=== PATIENT | female | born 2000 | race Caucasian/White ===

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

== ENCOUNTER 2019-02-26 21:29 | Emergency (ER) | payer MEDICAID, SELFPAY ==
[2019-02-26 21:29] VITALS: BP 117/58; PULSE 82; RESP 16; TEMP 36.4; O2SAT 99; BMI 30.5
--- NOTE | 2019-02-26 21:40 | RAD_ITS ---
STUDY: X-RAY - RIGHT KNEE REASON FOR EXAM: Female, 18 years old. Right knee pain after fall. Patient says she has a tibial plateau fracture TECHNIQUE: 4 by view(s) of the knee. COMPARISON: None. FINDINGS: Normal visualized distal femur. Normal visualized proximal tibia and fibula. Normal proximal tibiofibular articulation. There is no acute fracture, dislocation or destructive osseous pathology. Normal medial femorotibial compartment. Normal lateral femorotibial compartment. Normal patellofemoral articulation. There is no demonstrated joint effusion. The soft tissue structures are unremarkable. RAD/Knee 4 or More Views IMPRESSION: Normal x-ray examination of the knee. Electronically Signed: Bill Radford DO at 22:04 EDT Tel [phone], Service support ,
--- NOTE | 2019-02-26 22:48 | ED.VISSUMM ---
- ER Visit Summary Date of Service: 02/26/19 Chief Complaint: Right knee pain History of Present Illness: The patient is a 18 F with right knee pain. She fell coming out of a restaurant tonight. She landed directly on her right knee. She is currently on crutches because she had a previous lateral tibial plateau fracture. He states the pain is worse with movement. She took nothing for this at home. She has a follow-up with orthopedics next week about coming off of the crutches. Physical Examination: Vital signs reviewed. Right knee exam reveals tenderness in the anterior and lateral portion of the knee. Pain is worse with bending. She has 2+ DP pulses. There is her knee exam is unremarkable without ecchymosis. Test Results: X-rays interpreted by myself and radiology are negative for fracture Emergency Department Course and Treatment: The patient's lateral tibial plateau fracture was not found on x-ray or CT. It was found on an MRI. I do not see any large fracture tonight. The patient requested nonnarcotic medications. I will give her naproxen. I told her to stay nonweightbearing on crutches. She has a follow-up on Friday of this coming week and she will keep that appointment. Treatment Plan: [] Disposition: Discharge Impression: Right knee pain, history of tibial plateau fracture This note was generated with [employer] dictation software. It may contain incorrect words, spelling, and punctuation that were not noted in review of the chart prior to signing ED Disposition - Plan for ED Patient: Referrals: Milan Gustafson MD [Primary Care Provider] -
[2019-02-26 22:49] VITALS: BP 118/60; PULSE 72; RESP 18; O2SAT 98
--- NOTE | 2019-02-26 22:50 | ED.DEP ---
ED Disposition - Plan for ED Patient: Disposition: Home or Assisted Living Instructions: KNEE PAIN, Uncertain Cause Referrals: Milan Gustafson MD [Primary Care Provider] -
[2019-02-26] MEDS: Naproxen 500 MG Tablet PO (22:59)
== END 2019-02-26 23:00 | disposition home or self-care (01) ==
PROVIDERS: Emergency Provider Emergency Medicine; Family Provider Family Medicine; PCP Family Medicine
DX: M25.561 Pain in right knee (principal); W19.XXXA Unspecified fall, initial encounter; Y93.9 Activity, unspecified; Y92.9 Unspecified place or not applicable; Z87.898 Personal history of other specified conditions
CPT/HCPCS: 73564; 99283

== ENCOUNTER 2019-05-31 14:02 | Emergency (ER) | payer OTHER, MEDICAID, SELFPAY ==
[2019-05-31 14:03] VITALS: BP 158/90; PULSE 76; RESP 16; TEMP 35.9; O2SAT 100; BMI 32.9
--- NOTE | 2019-05-31 14:58 | CT_ITS ---
STUDY: CT BRAIN WITHOUT CONTRAST REASON FOR EXAM: Female, 19 years old. Bilateral leg weakness. RADIATION DOSAGE (If Supplied By Facility): CTDIvol = ( 44.99 ) mGy, DLP = ( 762.36 ) mGycm TECHNIQUE: Transaxial CT imaging of the brain was performed without administration of intravenous contrast material. Individualized dose optimization techniques were used for this CT. COMPARISON: No relevant priors. FINDINGS: Normal soft tissue structures. Normal calvarium. Normal size ventricles and extra-axial spaces for the patient's age. Normal white matter tracts of the cerebral hemispheres. Normal basal ganglia and thalami. Normal brainstem. Normal cerebellum. There is no intracranial hemorrhage. There are no findings of an acute ischemic infarction. Normal visualized paranasal sinuses. CT/Brain/Head without Contrast IMPRESSION: Normal unenhanced CT scan of the brain. Electronically Signed: Kwabena Clarke, at 15:43 EDT , Service support ,
--- NOTE | 2019-05-31 15:05 | ED.VISSUMM ---
- ER Visit Summary Date of Service: 05/31/19 Chief Complaint: Headache History of Present Illness: The patient is a 19 F past medical or surgical history. Currently has an IUD. Patient states she is had intermittent headaches this morning. That are frontal. No radiation. She denies any nausea. No vomiting or diarrhea. No fever. No sinus tenderness. No head or neck trauma recently. No blood thinners. States that headache waxes and wanes. She is got no history of migraines or other headaches. There is no family history of aneurysms or intracranial bleeds. States that she has some intermittent numbness to her right hand. And at times both legs. No prior history. Physical Examination: Young female no acute distress. Vital signs are stable afebrile. HEENT exam normal. No signs of trauma. Pupils are unreactive/motions are intact. Neck nontender no meningismus. Lungs clear to auscultation bilaterally. Heart regular rhythm no murmur. Abdomen soft nontender normal bowel sounds no peritoneal signs. Extremities moves all 4. Neurovascular intact. She has 5-5 histology technologist strength in both the right and left hand. Currently normal sensation. Dorsi plantarflexion are intact. Fingertip to nose [id number] all within normal limits. Neurologic exam normal NIH score is 0. Was able to stand up and walk to the door without any difficulty. No ataxia. No problems with her balance. She has a completely normal neurological exam at this time. Back nontender. Skin normal. Test Results: CAT scan of the brain without contrast shows no acute abnormality. April. Reviewed by me. Emergency Department Course and Treatment: Repeat exam at 1553 normal. No change. NIH score of 0. Treatment Plan: Discharge home. Return if worse. Follow-up with PCP. Disposition: Discharge Impression: Acute cephalgia uncertain etiology This note was generated with [employer] dictation software. It may contain incorrect words, spelling, and punctuation that were not noted in review of the chart prior to signing ED Disposition - Plan for ED Patient: Disposition: Home or Assisted Living Instructions: HEADACHE, Unspecified Referrals: Milan Gustafson MD [Primary Care Provider] - As soon as possible Additional Instructions: Tylenol and/or Motrin for pain. Follow-up with your doctor for further evaluation possible MRI if having continued symptoms. Return to ER if feeling worse such as severe headache, trouble speaking, trouble moving her arms or legs or difficulty walking.
--- NOTE | 2019-05-31 15:08 | ED.DEP ---
ED Disposition - Plan for ED Patient: Disposition: Home or Assisted Living Instructions: HEADACHE, Unspecified Referrals: Milan Gustafson MD [Primary Care Provider] - As soon as possible Additional Instructions: Tylenol and/or Motrin for pain. Follow-up with your doctor for further evaluation possible MRI if having continued symptoms. Return to ER if feeling worse such as severe headache, trouble speaking, trouble moving her arms or legs or difficulty walking.
[2019-05-31 16:03] VITALS: BP 126/77; PULSE 63; RESP 16; O2SAT 100
== END 2019-05-31 16:04 | disposition home or self-care (01) ==
PROVIDERS: Emergency Provider Emergency Medicine; Family Provider Family Medicine; PCP Family Medicine
DX: R51 Headache (principal); R20.0 Anesthesia of skin; Z97.5 Presence of (intrauterine) contraceptive device
CPT/HCPCS: 70450; 99282

== ENCOUNTER 2021-06-04 17:59 | Emergency (ER) | payer OTHER, SELFPAY ==
[2021-06-04 18:01] VITALS: BP 126/82; PULSE 73; RESP 18; TEMP 36.3; O2SAT 100; BMI 29.0
[2021-06-04 18:03] VITALS: TEMP 36.3; BMI 29.0
[2021-06-04 18:31] LABS: Absolute Lymphocyte Count 1.97 X10^3/uL (0.83-4.51); Absolute Neutrophil Count 4.6 X10^3/uL (2.0-7.7); Basophil# 0.05 X10^3/uL; Basophil% 0.6 % (0-1); Eosinophil# 0.31 X10^3/uL; Hematocrit 44.1 % (37-47); Lymphocyte # 1.97 X10^3/ul (0.83-4.51); Lymphocyte % 25.4 % (19-41); Mean Corp Hgb Conc 31.7 g/dL (32-36); Mean Corpuscular Hgb 29.1 pg (27.0-32.0); Mean Corpuscular Volume 91.7 fL (81-99); Mean Platelet Vol. 10.6 fl (6.2-12.0); Monocyte# 0.78 X10^3/uL; Monocyte% 10.1 % (0-10); NRBC Flagged by Analyzer 0 % (0-5); Neutrophil # 4.63 X10^3/uL (2.7-7.7); Neutrophil % 59.6 % (47-70); Platelet Count 373 K/mm3 (150-450); RBC Distribution Width CV 13.5 % (11.6-14.6); RBC Distribution Width SD 45.8 fl (35.1-43.9); Red Blood Count 4.81 M/mm3 (4.2-5.4); White Blood Count 7.8 K/mm3 (4.4-11.0)
[2021-06-04 18:39] LABS: Anion Gap 3 (5-15); BUN 14 mg/dL (7-18); BUN/Creat Ratio 13.2 RATIO (10-20); Calcium,Total 9.1 mg/dL (8.5-10.1); Chloride 110 mmol/L (98-107); Creatinine, Serum 1.06 mg/dL (0.55-1.02); EST Glomerular Filtration Rate 69 mL/min (>60); Est Glom Filt Rate - Afr Amer 83 mL/min (>60); Estimated Creatinine Clearance 77.93 ml/min; Glucose 113 mg/dL (74-106); Potassium 4.1 mmol/L (3.5-5.1); Sodium Level 142 mmol/L (136-145)
[2021-06-04 20:16] VITALS: BP 119/69; PULSE 82; RESP 16
--- NOTE | 2021-06-04 20:43 | CT_ITS ---
INDICATION: trauma, back injury EXAMINATION: CT Abdomen And Pelvis W/ Contrast Injection TECHNIQUE: Helically acquired images were obtained of the abdomen and pelvis after IV contrast. A radiation dose optimization technique was used for this scan. IV Contrast dosage and agent: IV 100mL Isovue-370 Oral contrast: None. COMPARISON: None. FINDINGS: Visualized lung bases: Unremarkable Liver: Unremarkable Gallbladder: Unremarkable Spleen: Unremarkable Pancreas: Unremarkable Adrenal Glands: Unremarkable Kidneys: Unremarkable Vasculature: Unremarkable GI Tract: Unremarkable Lymphadenopathy: None Peritoneum: No ascites. Bladder: Unremarkable Reproductive organs: IUD in place. Bones/Soft tissues: No suspicious osseous or soft tissue lesions CT/Abdomen/Pelvis W IV Cont ONLY IMPRESSION: No acute abnormalities in the abdomen or pelvis. Electronically Signed: Jose Alberto Hernandez MD at 22:33 EDT Tel , Service support ,
--- NOTE | 2021-06-04 20:44 | ED.VIS.FALL ---
HPI HPI - Fall History of Present Illness Chief Complaint: Fall Informant: patient Narrative Narrative: Sent from urgent care for evaluation. Mechanical fall slipping and landing on steps yesterday evening. No head injuries. Ibuprofen taken this morning. States that urgent care had a urine noting blood therefore sent here to rule out injury. She is not on any anticoagulation medicines. History of anxiety and depression. Patient has an IUD. No dysuria. Pain worse with movement. Patient denies any radicular symptoms. She is able to ambulate. Prior similar symptoms: No PFSH PFSH Medical History Anxiety Depression Home Medications naproxen 500 mg PO BID PRN PRN 12/20/18 [History Last Taken Unknown] cetirizine [Zyrtec] 10 mg PO DAILY 06/04/21 [History Last Taken Unknown] sertraline 25 mg PO DAILY 06/04/21 [History Last Taken Unknown] Allergy/AdvReac Type Severity Reaction Status Date / Time cefadroxil Allergy Itching Verified 06/04/21 18:00 Social History Smoking Status: Never smoker ROS [facility] ED Constitutional Constitutional ED: Denies chills, fever(s) or sweats Eyes Eyes: Denies change in vision ENT ENT ED: Denies dysphagia or sore throat Cardiovascular Cardiovascular: Denies chest pain, leg edema, palpitations or racing heartbeat Respiratory/Chest Respiratory/Chest: Denies cough, dyspnea or dyspnea on exertion Gastrointestinal Gastrointestinal: Denies abdominal pain, diarrhea, nausea or vomiting Genitourinary Genitourinary ED: Reports hematuria; Denies dysuria or urinary frequency Musculoskeletal Musculoskeletal: Reports back pain; Denies extremity pain or neck pain Integumentary Denies rash or wounds Neurologic Neurologic: Denies headache(s), paresthesias or weakness EXAM Physical Exam Const Vital Signs: 06/04/21 18:01 06/04/21 18:03 06/04/21 20:16 Temperature 97.3 F L 97.3 F L Temperature Source Temporal Temporal Pulse Rate 73 82 Respiratory Rate 18 16 Blood Pressure 126/82 H 119/69 Blood Pressure Mean 96 85 Pulse Ox 100 Oxygen Delivery Method Room Air 06/04/21 23:40 Temperature Temperature Source Pulse Rate 78 Respiratory Rate 16 Blood Pressure 118/78 Blood Pressure Mean 91 Pulse Ox 98 Oxygen Delivery Method Room Air Positive well nourished and well developed General Appearance ED: well developed and NAD HEENT Reports moist mucous membranes normocephalic and atraumatic Eyes PERRL, EOMs intact bilaterally and conjunctivae normal General Eye ED: Yes normal appearance of both eyes Neck no lymphadenopathy and supple General: Negative for tenderness Chest Wall Chest: Negative for tenderness Resp normal respiratory effort and normal air movement Effort and Inspection: symmetric chest movement; Negative for respiratory distress Cardio regular rate, regular rhythm and no murmurs Peripheral Pulses: pulses 2+ throughout GI normal to inspection, nondistended, normoactive bowel sounds and non-tender Palpation: Negative for guarding or rebound tenderness present Back/Spine no thoracic nor lumbar tenderness Back/Spine Narrative: Tender palpation right flank with no ecchymosis. There was midline mid lumbar tenderness without step-offs. Skin intact. Straight leg test negative bilaterally. Extremity normal to inspection General Extremety ED: Negative for edema or tenderness General Extremity: Negative for edema Neuro oriented x3 and no sensory deficits noted Sensorium / Orientation: awake and alert Skin no rashes or lesions noted and no wounds MDM MDM MDM Narrative Medical decision making narrative: Patient declined any medications. Urine hCG negative. Urine did note blood. Labs obtained stable. Trauma scan of the flank obtained showed no acute process. Patient continue Advil as needed. She'll follow as an outpatient. All questions were answered. Lab Data Attestation: I reviewed the patient's lab results. Labs: Laboratory Results - last 24 hr 06/04/21 06/04/21 06/04/21 18:17 18:17 21:05 WBC 7.8 RBC 4.81 Hgb 14.0 Hct 44.1 MCV 91.7 MCH 29.1 MCHC 31.7 L RDW Std Deviation 45.8 H RDW Coeff of Anne[place]Marie 13.5 Plt Count 373 MPV 10.6 Immature Gran % (Auto) 0.300 Neut % (Auto) 59.6 Lymph % (Auto) 25.4 [place] % (Auto) 10.1 H Eos % (Auto) 4.0 Baso % (Auto) 0.6 Absolute Neuts (auto) 4.6 Absolute Lymphs (auto) 1.97 Nucleated RBC % 0 Sodium 142 Potassium 4.1 Chloride 110 H Carbon Dioxide 29.0 Anion Gap 3 L BUN 14 Creatinine 1.06 H Estim Creat Clear Calc 77.93 Est GFR (MDRD) Af Amer 83 Est GFR (MDRD) Non-Af 69 BUN/Creatinine Ratio 13.2 Glucose 113 H Calcium 9.1 Urine Color Yellow Urine Clarity Sl. Cloudy Urine pH 5.0 Ur Specific [place] 1.030 Urine Protein 30 H Urine Glucose (UA) Normal Urine Ketones Negative Urine Occult Blood 50 H Urine Nitrite Negative Urine Bilirubin Negative Urine Urobilinogen Normal Ur Leukocyte Esterase Negative Urine RBC 0-5 SEEN Urine WBC 0-5 SEEN Ur Squamous Epith Cells 0-5 SEEN Urine Bacteria 1+ Urine Mucus 0 SEEN Urine Test Negative 06/04/21 06/04/21 21:32 21:32 WBC 8.1 RBC 4.28 Hgb 12.6 Hct 40.1 MCV 93.7 MCH 29.4 MCHC 31.4 L RDW Std Deviation 46.2 H RDW Coeff of [place] 13.4 Plt Count 337 MPV 10.7 Immature Gran % (Auto) 0.400 Neut % (Auto) 57.0 Lymph % (Auto) 26.7 [place] % (Auto) 11.2 H Eos % (Auto) 4.0 Baso % (Auto) 0.7 Absolute Neuts (auto) 4.6 Absolute Lymphs (auto) 2.15 Nucleated RBC % 0 Sodium 142 Potassium 3.8 Chloride 111 H Carbon Dioxide 26.0 Anion Gap 5 BUN 14 Creatinine 1.01 Estim Creat Clear Calc 81.79 Est GFR (MDRD) Af Amer 88 Est GFR (MDRD) Non-Af 73 BUN/Creatinine Ratio 13.9 Glucose 98 Calcium 8.5 Urine Color Urine Clarity Urine pH Ur Specific [place] Urine Protein Urine Glucose (UA) Urine Ketones Urine Occult Blood Urine Nitrite Urine Bilirubin Urine Urobilinogen Ur Leukocyte Esterase Urine RBC Urine WBC Ur Squamous Epith Cells Urine Bacteria Urine Mucus Urine Test Radiography Diagnostic Testing: Radiology Impression Abdomen/Pelvis CT 06/04/21 20:43 IMPRESSION: No acute abnormalities in the abdomen or pelvis. Electronically Signed: Jose Alberto Hernandez MD at 22:33 EDT Tel , Service support , Discharge Plan Triage Chief Complaint: Fall ED Provider: Angel Buck Dx/Rx/DC Orders Clinical Impression: Back contusion, Hematuria, Accidental fall on or from stairs or steps Instructions: ED Back Contusion, ED Hematuria Prescriptions: No Action naproxen 500 MG tablet 500 mg PO BID PRN PRN (Reason: Pain) RF: 0 sertraline 25 mg tablet 25 mg PO DAILY RF: 0 Zyrtec 10 mg Capsule 10 mg PO DAILY RF: 0 Primary Care Provider: Miriam Caicedo Referrals: Miriam Caicedo DO [Primary Care Provider] - 1 Week Activity Restrictions/Additional Instructions: CT scan negative for any injury. Continue your Advil 600 mg every 6 hours as needed for pain control. Follow-up with your doctor. Disposition Disposition: Home, Self Care Discharge Date/Time: 06/04/21 23:41
[2021-06-04 21:15] LABS: Mucous, Urine 0 SEEN /hpf (<or=2+)
[2021-06-04 21:29] LABS: Color, Urine Yellow (Yellow); Glucose, Dipstick Normal (Normal); Ketone-Dipstick Negative (Negative); Leukocyte Esterase-Dipstick Negative /ul (Negative); Nitrite-Dipstick Negative (Negative); Occult Blood-Urine 50 /ul (Negative); Protein-Dipstick 30 mg/dl (Negative); Urine Bilirubin Dipstick Negative (Negative); Urine Clarity Sl. Cloudy (Clear); Urine Urobilinogen Normal (Normal)
[2021-06-04 21:42] LABS: Absolute Lymphocyte Count 2.15 X10^3/uL (0.83-4.51); Absolute Neutrophil Count 4.6 X10^3/uL (2.0-7.7); Basophil# 0.06 X10^3/uL; Basophil% 0.7 % (0-1); Eosinophil# 0.32 X10^3/uL; Hematocrit 40.1 % (37-47); Hemoglobin 12.6 g/dL (12.0-15.0); Lymphocyte # 2.15 X10^3/ul (0.83-4.51); Lymphocyte % 26.7 % (19-41); Mean Corp Hgb Conc 31.4 g/dL (32-36); Mean Corpuscular Hgb 29.4 pg (27.0-32.0); Mean Corpuscular Volume 93.7 fL (81-99); Mean Platelet Vol. 10.7 fl (6.2-12.0); Monocyte% 11.2 % (0-10); NRBC Flagged by Analyzer 0 % (0-5); Neutrophil # 4.59 X10^3/uL (2.7-7.7); Platelet Count 337 K/mm3 (150-450); RBC Distribution Width CV 13.4 % (11.6-14.6); RBC Distribution Width SD 46.2 fl (35.1-43.9); Red Blood Count 4.28 M/mm3 (4.2-5.4); White Blood Count 8.1 K/mm3 (4.4-11.0)
[2021-06-04 21:47] LABS: White Blood Cells 0-5 SEEN /hpf (0-5)
[2021-06-04 21:48] LABS: Bacteria 1+ /hpf (None Seen); Internal QC Validated? YES +Cl - CLEAR BKGD; Pregnancy, Urine Negative Negative; Red Blood Cells-Urine 0-5 SEEN /hpf (0-5); Squamous Epithelial Cells - UA 0-5 SEEN /hpf (5-10)
[2021-06-04 21:51] LABS: Anion Gap 5 (5-15); BUN 14 mg/dL (7-18); BUN/Creat Ratio 13.9 RATIO (10-20); Calcium,Total 8.5 mg/dL (8.5-10.1); Chloride 111 mmol/L (98-107); Creatinine, Serum 1.01 mg/dL (0.55-1.02); EST Glomerular Filtration Rate 73 mL/min (>60); Est Glom Filt Rate - Afr Amer 88 mL/min (>60); Estimated Creatinine Clearance 81.79 ml/min; Glucose 98 mg/dL (74-106); Potassium 3.8 mmol/L (3.5-5.1); Sodium Level 142 mmol/L (136-145)
[2021-06-04 23:40] VITALS: BP 118/78; PULSE 78; RESP 16; O2SAT 98
== END 2021-06-04 23:41 | disposition home or self-care (01) ==
PROVIDERS: Emergency Provider Emergency Medicine; PCP Family Medicine
DX: S30.0XXA Contusion of lower back and pelvis, initial encounter (principal); R31.9 Hematuria, unspecified; W10.9XXA Fall (on) (from) unspecified stairs and steps, initial encounter; Y93.9 Activity, unspecified; Y92.9 Unspecified place or not applicable; F32.9 Major depressive disorder, single episode, unspecified; F41.9 Anxiety disorder, unspecified; Z97.5 Presence of (intrauterine) contraceptive device; Z79.899 Other long term (current) drug therapy
CPT/HCPCS: 74177; 80048; 81001; 81025; 85025; 96360; 96361; 99281; 99282; J7030; Q9967; A4216

== ENCOUNTER 2024-05-27 12:30 | Outpatient (CLI) | payer MEDICAID, SELFPAY ==
[2024-05-27 13:04] VITALS: BP 120/73; PULSE 100; RESP 16; TEMP 36.1
[2024-05-27 13:13] VITALS: BMI 31.1
[2024-05-27 19:29] LABS: HIV - WCH Non-Reactive (Nonreactive); Rubella IgG Reactive (Nonreactive); Syphilis Antibodies Non-reactive
--- NOTE | 2024-05-27 20:50 | OB.TRI.NOTE ---
HPI - General General Date of Admission: 05/27/24 Date of Service: 05/27/24 Chief Complaint: Decreased movement HPI Narrative LEONARDO CHRISTIAN, is a 24 F who presents from [place] ED. Was evaluated for epigastric pain released to come here for NST due to decreased movement. No longer complains of pain Maternal Data Information Gestational age: 33 PFSH PFSH Medical History Anxiety Depression Home Medications ?Medication ?Instructions ?Recorded ?Last Taken ?Type vit no.95-ferrous 1 tab PO DAILY 05/27/24 Unknown History fumarate 28 mg-folic acid 800 mcg tablet () Allergy/AdvReac Type Severity Reaction Status Date / Time cefadroxil Allergy Itching, Verified 05/27/24 13:11 tingling, metalic taste and dizziness Social History Smoking Status: Never smoker NST FHR Rate Baby A Variability:: Moderate Accelerations:: 15 x 15 Decelerations:: None NST Reactive:: Yes FHR Category:: Category I Uterine Activity:: quiet Assessment & Plan (1) Decreased movement affecting management of mother, antepartum: QUALIFIERS: Fetus number: single or unspecified fetus Qualified Code(s): O36.8190 - Decreased movements, unspecified trimester, not applicable or unspecified (2) 33 weeks gestation of : PLAN: Plan Reactive NST. Follow up in office
[2024-05-27 20:56] LABS: Hepatitis B Surface Antigen Non-Reactive (Nonreactive); Hepatitis C Antibody Non-Reactive (Nonreactive)
== END 2024-05-27 13:50 | disposition home or self-care (01) ==
LOC: LAB 12:42 → WP 12:43
PROVIDERS: PCP Physician Assistant; Referring Provider Obstetrics & Gynecology; Visit Provider Obstetrics & Gynecology
DX: O36.8130 Decreased fetal movements, third trimester, not applicable or unspecified (principal); Z3A.33 33 weeks gestation of pregnancy
CPT/HCPCS: 36415; 59025; 59050; 86703; 86762; 86780; 86803; 86850; 86900; 86901; 87340; 99221; G0378

== ENCOUNTER 2024-07-10 15:10 | Outpatient (CLI) | payer MEDICAID, SELFPAY ==
[2024-07-10] VITALS (14 sets, daily range): BP systolic 127–131; BP diastolic 76–81; PULSE 112–124; RESP 18; TEMP 36.8; O2SAT 97–99; BMI 32.8
== END 2024-07-10 16:35 | disposition home or self-care (01) ==
LOC: WPOUT 15:22 → WP 15:23
PROVIDERS: PCP Physician Assistant; Referring Provider Advanced Practice Midwife; Visit Provider Advanced Practice Midwife
DX: O36.8130 Decreased fetal movements, third trimester, not applicable or unspecified (principal); Z3A.40 40 weeks gestation of pregnancy
CPT/HCPCS: 59025; 59050; 99221; G0378